=== PATIENT | male | born 1980 | race African-American/Black ===

== ENCOUNTER 2021-01-16 07:24 | Observation (INO) | payer SELFPAY ==
--- OUTSIDE RECORDS SUMMARY | 2021-01-16 07:26 | XMS REPORT | Continuity of Care Document ---
:1980 Author Organization [facility] t Address [address] [place] [address] Care Team Providers Name Role Phone Adrian SANCHEZ Attending Clinician Adonis SANCHEZ Attending Clinician Adonis SANCHEZ Admitting Clinician Problems This patient has no known problems. Allergies, Adverse Reactions, Alerts This patient has no known allergies or adverse reactions. Medications This patient has no known medications. Procedures This patient has no known procedures. Encounters Start End Encounter Admission Attending Care Care Encounter Source Date/Time Date/Time Type Type Clinicians Facility Department ID 2020-12-20 2020-12-21 [facility] [address] [facility] [id number] 16:45:00 12:39:00 Encounter Geovani Lamb [id number] [place] [id number] [place] [id number] Results This patient has no known results.
[2021-01-16] MEDS ORDERED: IPRATROPIUM BROM 0.5MG/2.5ML ONE (08:34)
[2021-01-16] MEDS ORDERED: LEVALBUTEROL 1.25 MG/3 ML NEB ONE (08:34)
[2021-01-16] MEDS ORDERED: NA CHLORIDE 0.9% 1,000 ML ONE (08:34)
[2021-01-16] MEDS ORDERED: METHYLPREDNISOLONE 125 MG INJ ONE (08:34)
[2021-01-16] MEDS ORDERED: FAMOTIDINE 20 MG/2 ML VIAL IV ONE (08:34)
[2021-01-16] MEDS ORDERED: CEFTRIAXONE/SWI 1gm 1 GM/10 ML SYR ONE (08:35)
[2021-01-16] MEDS ORDERED: Magnesium Sulfate 2gm IVPB 2 G/50 ML BAG IV ONE (08:35)
--- NOTE | 2021-01-16 08:51 | ER ---
Nurse's Notes [facility] Name: Que Walker Age: 40 yrs Sex: Male : 1980 Arrival Date: 01/16/2021 Time: 07:26 Bed 20 Private MD: Diagnosis: Asthma;Dyspnea;Essential (primary) hypertension;Obesity, unspecified Presentation: 01/16 07:35 Chief complaint: Patient states: SOB and cough that began last night. Pt reports hx of aa5 asthma. 07:35 Coronavirus screen: cough unrelated to allergies, shortness of breath. Ebola Screen: aa5 Patient negative for fever greater than or equal to 101.5 degrees Fahrenheit, and additional compatible Ebola Virus Disease symptoms. Initial Sepsis Screen: Does the patient meet any 2 criteria? RR > 20 per min. Does the patient have a suspected source of infection? No. Patient's initial sepsis screen is negative. Risk Assessment: Do you want to hurt yourself or someone else? Patient reports no desire to harm self or others. Onset of symptoms was January 16, 2021. 07:35 Acuity: DU 3 aa5 07:35 Method Of Arrival: Wheelchair aa5 Historical: - Allergies: 09:30 Iodine; rb3 - PMHx: 07:46 Hypertension; Asthma; aa5 - PSHx: 07:46 left hand surg; left foot surg; aa5 - Immunization history:: Adult Immunizations unknown. - Social history:: Smoking status: Patient reports the use of cigarette tobacco products, denies chronic smoking, but will smoke occasionally. - Family history:: not pertinent. Screenin:44 Abuse screen: Denies threats or abuse. Nutritional screening: decreased appetite for a rb3 couple days. Tuberculosis screening: No symptoms or risk factors identified. Fall Risk None identified. Assessment: 07:44 General: Appears in no apparent distress. Behavior is calm, cooperative, Denies fever. rb3 Neuro: Level of Consciousness is awake, alert, obeys commands, Oriented to person, place, time, situation. Cardiovascular: Capillary refill. Respiratory: Reports shortness of breath cough that is Airway is patent Respiratory effort is even, unlabored, Respiratory pattern is regular, symmetrical. GI: No signs and/or symptoms were reported involving the gastrointestinal system. : No signs and/or symptoms were reported regarding the genitourinary system. EENT: Right side of neck is swollen. Dr. Ferreira notified.. Musculoskeletal: Range of motion: intact in all extremities. 08:30 Reassessment: Patient appears in no apparent distress at this time. No changes from rb3 previously documented assessment. 09:30 Reassessment: Patient appears in no apparent distress at this time. Patient and/or rb3 family updated on plan of care and expected duration. Pain level reassessed. Patient is alert, oriented x 3, equal unlabored respirations, skin warm/dry/pink. 09:35 Reassessment: Pt. went to CT. rb3 10:00 Reassessment: Patient appears in no apparent distress at this time. No changes from rb3 previously documented assessment. 10:49 Reassessment: Dr. Doll at the pt. bedside. rb3 11:00 Reassessment: Patient appears in no apparent distress at this time. Patient and/or rb3 family updated on plan of care and expected duration. Pain level reassessed. Patient is alert, oriented x 3, equal unlabored respirations, skin warm/dry/pink. 11:56 Reassessment: Patient appears in no apparent distress at this time. No changes from rb3 previously documented assessment. Vital Signs: 07:35 BP 154 / 120; Pulse 90; Resp 28 S; Temp 98.3(O); Pulse Ox 99% on R/A; Weight 102.51 kg aa5 (R); Height 5 ft. 10 in. (177.80 cm) (R); 08:30 BP 161 / 122; Pulse 90; Resp 21; Pulse Ox 100% ; rb3 09:30 BP 165 / 113; Pulse 94; Resp 22; Pulse Ox 97% ; rb3 10:00 BP 142 / 114; Pulse 91; Resp 21; Pulse Ox 97% on R/A; rb3 11:00 BP 142 / 100; Pulse 90; Resp 22; Pulse Ox 97% ; rb3 11:56 BP 130 / 101; Pulse 92; Resp 21; Pulse Ox 97% ; rb3 07:35 Body Mass Index 32.43 (102.51 kg, 177.80 cm) aa5 ED Course: 07:26 Patient arrived in ED. as 07:35 Arm band placed on. aa5 07:37 Marko Ferreira MD is Attending Physician. sammi 07:44 Patient has correct armband on for positive identification. Bed in low position. Call rb3 light in reach. Side rails up X 1. graphic design intern on. Pulse ox on. NIBP on. Warm blanket given. 07:46 Triage completed. aa5 07:52 Daniela Reddy, RN is Primary Nurse. rb3 08:28 XRAY Chest (1 view) In Process Unspecified. EDMS 08:43 Inserted saline lock: in right antecubital area, using aseptic technique. Blood rb3 collected. 08:50 Evert Doll MD is Hospitalizing Provider. sammi 09:45 Soft Tissue Neck Wo Contr In Process Unspecified. EDMS 09:46 Thorax Wo Con In Process Unspecified. EDMS 12:25 No provider procedures requiring assistance completed. IV discontinued, intact, rb3 bleeding controlled, No redness/swelling at site. Pressure dressing applied. Administered Medications: 08:25 Drug: Xopenex (levalbuterol) 3.75 mg Route: Inhalation; rb3 08:25 Drug: AtroVENT (ipratropium) Aerosol 0.5 mg Route: Inhalation; rb3 08:45 Drug: SOLU-Medrol (methylPrednisoLONE) 125 mg Route: IVP; Site: right antecubital; rb3 09:00 Follow up: Response: No adverse reaction rb3 08:45 Drug: Magnesium Sulfate 2 grams Route: IVPB; Infused Over: 2 hrs; Site: right rb3 antecubital; 10:47 Follow up: Response: No adverse reaction; IV Status: Completed infusion rb3 08:45 Drug: Rocephin - (cefTRIAXone) 1 grams Route: IVPB; Infused Over: 30 mins; Site: right rb3 antecubital; 09:00 Follow up: Response: No adverse reaction; IV Status: Completed infusion rb3 08:45 Drug: NS 0.9% 1000 ml Route: IV; Rate: 125 ml/hr; Site: right antecubital; rb3 12:12 Follow up: IV Status: Completed infusion rb3 08:45 Drug: Pepcid (famotidine) 20 mg Route: IVP; Site: right antecubital; rb3 09:00 Follow up: Response: No adverse reaction rb3 09:30 Drug: cloNIDine 0.2 mg Route: PO; rb3 10:00 Follow up: Response: No adverse reaction rb3 09:30 Drug: Norvasc (amlodipine) 10 mg Route: PO; rb3 10:00 Follow up: Response: No adverse reaction rb3 10:49 Drug: Zithromax (azithromycin) 500 mg Route: IVPB; Infused Over: 1 hrs; Site: right rb3 antecubital; 11:55 Follow up: Response: No adverse reaction; IV Status: Completed infusion rb3 Outcome: 08:51 Decision to Hospitalize by Provider. sammi 12:25 Discharged to home ambulatory, with family. rb3 12:25 Condition: stable 12:25 Discharge instructions given to patient, Instructed on discharge instructions, follow up and referral plans. medication usage, Demonstrated understanding of instructions, follow-up care, medications, Prescriptions given X 3. 12:26 Patient left the ED. rb3 Signatures: Dispatcher [employer] EDMS Marko Ferreira MD MD cha Martinez, Amelia as Calderon, Audri, RN RN aa5 Daniela Reddy RN RN rb3 Corrections: (The following items were deleted from the chart) 09:33 07:30 BP 161 / 122; Pulse 90bpm; Resp 21bpm; Pulse Ox 100%; rb3 rb3 09:34 07:46 Allergies: No Known Allergies; aa5 rb3 10:15 08:58 CORONAVIRUS+MR.LAB.MAY drawn and sent. rb3 EDMS
--- NOTE | 2021-01-16 08:52 | EDPHYS ---
Physician Documentation [facility] Name: Que Walker Age: 40 yrs Sex: Male : 1980 Arrival Date: 01/16/2021 Time: 07:26 Bed 20 Private MD: GONZALO Physician Marko Ferreira HPI: 01/16 08:44 This 40 yrs old Black Male presents to ER via Wheelchair with complaints of Asthma sammi Exacerbation. 08:44 The patient presents to the emergency department with wheezing, Current therapy: None. sammi Onset: The symptoms/episode began/occurred 2 day(s) ago. Modifying factors: The symptoms are alleviated by nothing, the symptoms are aggravated by damp environment, exertion. Associated signs and symptoms: Pertinent positives: nausea. Severity of symptoms: At their worst the symptoms were moderate in the emergency department the symptoms are unchanged. The patient has not experienced similar symptoms in the past. Historical: - Allergies: 09:30 Iodine; rb3 - PMHx: 07:46 Hypertension; Asthma; aa5 - PSHx: 07:46 left hand surg; left foot surg; aa5 - Immunization history:: Adult Immunizations unknown. - Social history:: Smoking status: Patient reports the use of cigarette tobacco products, denies chronic smoking, but will smoke occasionally. - Family history:: not pertinent. ROS: 08:44 Constitutional: Negative for fever, chills, and weight loss, Eyes: Negative for injury, sammi pain, redness, and discharge, ENT: Negative for injury, pain, and discharge, Neck: Negative for injury, pain, and swelling, Cardiovascular: Negative for chest pain, palpitations, and edema, Abdomen/GI: Negative for abdominal pain, nausea, vomiting, diarrhea, and constipation, Back: Negative for injury and pain, : Negative for injury, bleeding, discharge, and swelling, MS/Extremity: Negative for injury and deformity, Skin: Negative for injury, rash, and discoloration, Neuro: Negative for headache, weakness, numbness, tingling, and seizure, Psych: Negative for depression, anxiety, suicide ideation, homicidal ideation, and hallucinations, Allergy/Immunology: Negative for hives, rash, and allergies, Endocrine: Negative for neck swelling, polydipsia, polyuria, polyphagia, and marked weight changes, Hematologic/Lymphatic: Negative for swollen nodes, abnormal bleeding, and unusual bruising. 08:44 Respiratory: Positive for cough, shortness of breath, wheezing, inspiratory, expiratory. Exam: 08:44 Constitutional: This is a well developed, well nourished patient who is awake, alert, sammi and in no acute distress. Head/Face: Normocephalic, atraumatic. Eyes: Pupils equal round and reactive to light, extra-ocular motions intact. Lids and lashes normal. Conjunctiva and sclera are non-icteric and not injected. Cornea within normal limits. Periorbital areas with no swelling, redness, or edema. ENT: Nares patent. No nasal discharge, no septal abnormalities noted. Tympanic membranes are normal and external auditory canals are clear. Oropharynx with no redness, swelling, or masses, exudates, or evidence of obstruction, uvula midline. Mucous membranes moist. Neck: Trachea midline, no thyromegaly or masses palpated, and no cervical lymphadenopathy. Supple, full range of motion without nuchal rigidity, or vertebral point tenderness. No Meningismus. Chest/axilla: Normal chest wall appearance and motion. Nontender with no deformity. No lesions are appreciated. Cardiovascular: Regular rate and rhythm with a normal S1 and S2. No gallops, murmurs, or rubs. Normal PMI, no JVD. No pulse deficits. Abdomen/GI: Soft, non-tender, with normal bowel sounds. No distension or tympany. No guarding or rebound. No evidence of tenderness throughout. Back: No spinal tenderness. No costovertebral tenderness. Full range of motion. Male : Normal genitalia with no discharge or lesions. Skin: Warm, dry with normal turgor. Normal color with no rashes, no lesions, and no evidence of cellulitis. MS/ Extremity: Pulses equal, no cyanosis. Neurovascular intact. Full, normal range of motion. Neuro: Awake and alert, GCS 15, oriented to person, place, time, and situation. Cranial nerves II-XII grossly intact. Motor strength 5/5 in all extremities. Sensory grossly intact. Cerebellar exam normal. Normal gait. Psych: Awake, alert, with orientation to person, place and time. Behavior, mood, and affect are within normal limits. 08:44 Respiratory: the patient does not display signs of respiratory distress, Respirations: labored breathing, that is mild, that is moderate, Breath sounds: decreased breath sounds, rhonchi, + upper airway congestion. wheezing: expiratory Respiratory rate: 28 08:49 Respiratory: Breath sounds: [facility] 09:12 ECG was reviewed by the Attending Physician. [facility] 09:12 Musculoskeletal/extremity: DVT Exam: No signs of deep vein thrombosis. no pain, no swelling, no tenderness, negative Homans' sign noted on exam, no appreciated bluish discoloration, no erythema, no increased warmth. 09:13 Neck: External neck: swelling, tenderness, that is moderate, of the right sammi submandibular area, right sternocleidomastoid, right posterior aspect of neck and right lateral aspect of neck. Vital Signs: 07:35 BP 154 / 120; Pulse 90; Resp 28 S; Temp 98.3(O); Pulse Ox 99% on R/A; Weight 102.51 kg aa5 (R); Height 5 ft. 10 in. (177.80 cm) (R); 08:30 BP 161 / 122; Pulse 90; Resp 21; Pulse Ox 100% ; rb3 09:30 BP 165 / 113; Pulse 94; Resp 22; Pulse Ox 97% ; rb3 10:00 BP 142 / 114; Pulse 91; Resp 21; Pulse Ox 97% on R/A; rb3 11:00 BP 142 / 100; Pulse 90; Resp 22; Pulse Ox 97% ; rb3 11:56 BP 130 / 101; Pulse 92; Resp 21; Pulse Ox 97% ; rb3 07:35 Body Mass Index 32.43 (102.51 kg, 177.80 cm) aa5 MDM: 07:37 Patient medically screened. [facility] 08:48 Differential diagnosis: acute asthma, reactive airway. Antibiotic administration: [facility] Rocephin and Zithromax given. Data reviewed: vital signs, nurses notes, lab test result(s), EKG, radiologic studies, CT scan, plain films. Data interpreted: nurse monitoring: Pulse oximetry: on room air is 99 %. Test interpretation: by ED physician or midlevel provider: ECG, plain radiologic studies. Counseling: I had a detailed discussion with the patient and/or guardian regarding: the historical points, exam findings, and any diagnostic results supporting the discharge/admit diagnosis, lab results, radiology results, the need for further work-up and treatment in the hospital. 01/16 07:55 Order name: Basic Metabolic Panel [facility] 01/16 07:55 Order name: CBC with Diff; Complete Time: 09:[address] [facility] 01/16 07:55 Order name: LFT's; Complete Time: 09:[address] [facility] 01/16 07:55 Order name: Magnesium; Complete Time: 09:[address] [facility] 01/16 07:55 Order name: NT PRO-BNP; Complete Time: 09:[address] [facility] 01/16 07:55 Order name: PT-INR [facility] 01/16 07:55 Order name: Troponin (emerg Dept Use Only); Complete Time: 09:[address] [facility] 01/16 07:55 Order name: XRAY Chest (1 view); Complete Time: 10:[address] [facility] 01/16 07:55 Order name: Blood Culture Adult (2) [facility] 01/16 07:56 Order name: Basic Metabolic Panel; Complete Time: 09:33 [facility] 01/16 11:28 Order name: SARS-COV-2 RT PCR [facility] 01/16 07:55 Order name: EKG; Complete Time: 07:[address] [facility] 01/16 07:55 Order name: Cardiac monitoring; Complete Time: 09:[address] [facility] 01/16 09:37 Order name: Thorax Wo Con [facility] 01/16 09:38 Order name: Soft Tissue Neck Wo Contr; Complete Time: 10:14 [facility] 01/16 07:55 Order name: EKG - Nurse/Tech; Complete Time: 09:[address] [facility] 01/16 07:55 Order name: IV Saline Lock; Complete Time: 09:[address] [facility] 01/16 07:55 Order name: Labs collected and sent; Complete Time: 08:[address] [facility] 01/16 07:55 Order name: O2 Per Protocol; Complete Time: 08:[address] [facility] 01/16 07:55 Order name: O2 Sat Monitoring; Complete Time: 08:[address] [facility] EC:12 Rate is 94 beats/min. Rhythm is regular. QRS [place] is Normal. DC interval is normal. QRS sammi interval is normal. QT interval is normal. No Q waves. T waves are Normal. No ST changes noted. Clinical impression: NSR w/ Non-specific ST/T Changes and No evidence of ischemia. Interpreted by me. Reviewed by me. Administered Medications: 08:25 Drug: Xopenex (levalbuterol) 3.75 mg Route: Inhalation; rb3 08:25 Drug: AtroVENT (ipratropium) Aerosol 0.5 mg Route: Inhalation; rb3 08:45 Drug: SOLU-Medrol (methylPrednisoLONE) 125 mg Route: IVP; Site: right antecubital; rb3 09:00 Follow up: Response: No adverse reaction rb3 08:45 Drug: Magnesium Sulfate 2 grams Route: IVPB; Infused Over: 2 hrs; Site: right rb3 antecubital; 10:47 Follow up: Response: No adverse reaction; IV Status: Completed infusion rb3 08:45 Drug: Rocephin - (cefTRIAXone) 1 grams Route: IVPB; Infused Over: 30 mins; Site: right rb3 antecubital; 09:00 Follow up: Response: No adverse reaction; IV Status: Completed infusion rb3 08:45 Drug: NS 0.9% 1000 ml Route: IV; Rate: 125 ml/hr; Site: right antecubital; rb3 12:12 Follow up: IV Status: Completed infusion rb3 08:45 Drug: Pepcid (famotidine) 20 mg Route: IVP; Site: right antecubital; rb3 09:00 Follow up: Response: No adverse reaction rb3 09:30 Drug: cloNIDine 0.2 mg Route: PO; rb3 10:00 Follow up: Response: No adverse reaction rb3 09:30 Drug: Norvasc (amlodipine) 10 mg Route: PO; rb3 10:00 Follow up: Response: No adverse reaction rb3 10:49 Drug: Zithromax (azithromycin) 500 mg Route: IVPB; Infused Over: 1 hrs; Site: right rb3 antecubital; 11:55 Follow up: Response: No adverse reaction; IV Status: Completed infusion rb3 Disposition: 01/16/21 08:51 Hospitalization ordered by Evert Doll for Inpatient Admission. Preliminary diagnosis are Asthma, Dyspnea, Essential (primary) hypertension, Obesity, unspecified. - Bed requested for Telemetry/MedSurg (Inpatient). - Status is Inpatient Admission. rb3 - Condition is Fair. - Problem is new. - Symptoms have improved. Signatures: Dispatcher [employer] EDMarko Diaz MD MD cha Calderon, Audri, RN RN aa5 Daniela Reddy, RN RN rb3 Corrections: (The following items were deleted from the chart) 09:20 08:50 Chest For PE Angio+CT.RAD.BRZ ordered. EDMS EDMS 09:34 07:46 Allergies: No Known Allergies; aa5 rb3 09:36 09:13 Thorax W/ Con+CT.RAD.BRZ ordered. EDMS EDMS 09:37 09:36 CT-CHEST WITHOUT CONTRAST ordered. EDMS EDMS 09:38 09:13 Soft Tissue Neck W/Contr+CT.RAD.BRZ ordered. EDMS EDMS 10:15 07:56 CORONAVIRUS+MR.LAB.BRZ ordered. EDMS EDMS 12:26 08:51 Hospitalization Ordered by Evert Doll MD for Inpatient Admission. Preliminary rb3 diagnosis is Asthma; Dyspnea; Essential (primary) hypertension; Obesity, unspecified. Bed requested for Telemetry/MedSurg (Inpatient). Status is Inpatient Admission. Condition is Fair. Problem is new. Symptoms have improved. sammi
[2021-01-16 09:01] LABS: Absolute Lymphocytes (CBC) 1.5 K/uL (0.7-4.9); Basophils % 1.1 % (0-1.3); Hematocrit 42.9 % (39.6-49.0); Lymphocytes % 19.4 % (15.3-44.8); MPV 8.7 fL (7.6-11.3); RBC Red Blood Cell Count 5.06 M/uL (4.33-5.43)
[2021-01-16 09:10] LABS: Protime INR 1.14
[2021-01-16 09:31] LABS: ALT/SGPT 29 U/L (12-78); AST/SGOT 8 U/L (15-37); Albumin 3.5 g/dL (3.4-5.0); Alkaline Phosphatase 128 U/L (45-117); BUN Blood Urea Nitrogen 8 mg/dL (7-18); Bicarbonate 27 mmol/L (21-32); Bilirubin Direct 0.1 mg/dL (0-0.2); Bilirubin Total 0.7 mg/dL (0.2-1.0); Glucose Level 129 mg/dL (74-106); NT PRO-BNP 28 pg/mL (<125); Potassium 3.8 mmol/L (3.5-5.1); Protein, Total 8.7 g/dL (6.4-8.2); Sodium Level 136 mmol/L (136-145); Troponin (Emerg Dept Use Only) < 0.02 ng/mL (0.0-0.045)
[2021-01-16] MEDS ORDERED: cloNIDine HCL 0.1 MG TAB ONE (09:46)
[2021-01-16] MEDS ORDERED: AMLODIPINE 10 MG TAB ONE (09:47)
--- NOTE | 2021-01-16 09:52 | RAD REPORT ---
EXAM DESCRIPTION: RAD - Chest Single View - 01/16/2021 8:30 am CLINICAL HISTORY: Cough;Dyspnea COMPARISON: None TECHNIQUE: AP portable chest image was obtained 01/16/2021 8:30 am . FINDINGS: Lungs are clear. Heart and vasculature are normal. No measurable pleural effusion and no p neumothorax. No acute bony abnormality seen. No acute aortic findings suspected. IMPRESSION: No acute cardiopulmonary process.
--- NOTE | 2021-01-16 10:00 | RAD REPORT ---
EXAM DESCRIPTION: CT - Soft Tissue Neck Wo Contr - 01/16/2021 9:45 am CLINICAL HISTORY: Deformity;Fever;Congestion, history of neck swelling and tenderness right submandi bular region and posterior neck COMPARISON: Thorax Wo Con dated 01/16/2021 TECHNIQUE: Axial 3 millimeter thick images were obtained of the neck and included the head from skul lbase to third ventricle level. Sagittal and coronal reformatted images were generated. No contrast w as administered. All CT scans are performed using dose optimization technique as appropriate and may include automated exposure control or mA/KV adjustment according to patient size. FINDINGS: Intracranial contents are grossly normal on limited assessment. No globe or orbital conten t abnormality. Mastoid air cells are clear. There is complete opacification of the frontal, ethmoid a nd sphenoid sinuses with mucosal thickening partially filling each maxillary sinus. No air-fluid leve l. No sclerotic or expansile bony change. No acute or destructive bone process identified. No globe o r orbital content abnormality seen. Adenoid tissue is mildly prominent accentuated by oblique angulation to these tissues. No abnormal to nsillar thickening or hypertrophy evident. Soft palate, epiglottis and laryngeal structures within no rmal limits. No pharyngeal mucosal mass. The parotid, submandibular and partially imaged thyroid gland tissue show no suspicious findings. Patient has numerous bilateral enlarged lymph nodes posterior to each angle of the mandible and deep to each sternocleidomastoid muscle. Lymph nodes range from a few mm up to 3.5 cm in size. Lymph nodes are worse on the right. Supraclavicular region is not imaged to allow assessment of lymphadenopathy. No necrotic lymph nodes seen. No abnormalities posterior to the cervical spine. Skeletal musculature shows no suspicious finding. IMPRESSION: Extensive abnormal bilateral cervical lymphadenopathy with lymph nodes ranging from a fe w mm up to 3.5 cm in size. Largest lymph node is posterior to the right angle of the mandible. Complete opacification of the ethmoid, frontal and sphenoid sinuses with partial opacification of the maxillary sinuses. Lymph node pattern is nonspecific. Reactive lymph nodes are possible given the evidence of sinus infe ction. Lymphoma or other malignancy is possible as well.
--- NOTE | 2021-01-16 10:18 | RAD REPORT ---
EXAM DESCRIPTION: CT - Thorax Wo Con - 01/16/2021 9:46 am CLINICAL HISTORY: PAIN, shortness of breath, cough, hypertension COMPARISON: Chest Single View dated 01/16/2021 TECHNIQUE: Axial 5 mm thick images of the chest were obtained without IV contrast. All CT scans are performed using dose optimization technique as appropriate and may include automated exposure control or mA/KV adjustment according to patient size. FINDINGS: Bilateral cervical lymphadenopathy is detailed in the separate CT soft tissue neck examina tion. A 4 millimeter noncalcified pulmonary nodule is present in the right upper lobe abutting the minor fi ssure (image 41/75). A small focus of ill-defined ground-glass opacity present abutting the diaphragm atic pleura on the right. A 6 millimeter ill-defined nodular density is present in the posterolateral left upper lobe abutting the fissure (image 38/75). Several additional small 3 mm or less nodules ar e seen in the lateral left lower lobe. No consolidated infiltrate or acute infectious process of the lung parenchyma. No pulmonary edema. There is minimal scarring in the anterior base of the lingula. No pleural thickening or pleural effusion. No pneumothorax. Several small nonspecific hilar lymph nodes are present. Multiple small 6-11 mm lymph nodes are seen near the great vessel origins. A 14 millimeter lymph node is present in the superior aspect of the re trocaval-pretracheal space. A 25 millimeter lymph node is present in the inferior aspect of the retro caval-pretracheal space. Small subcarinal lymph nodes are present. No gross aortic or pulmonary artery finding suspected. No cardiomegaly or pericardial effusion. No chest wall mass. Patient has a few nonspecific bilateral axillary lymph nodes. Largest is 13 mm on the left side. IMPRESSION: Multiple noncalcified mediastinal lymph nodes are present with small hilar lymph nodes. Lymph node pattern is greater than typically seen. Patient has a few small nonspecific pulmonary nodules up to 6 mm in size. These are few in number. Lymph node pattern is nonspecific. Given the cervical lymph node pattern, lymphoma would be a conside ration. There is no significant lung parenchymal process that would suspect the mediastinal lymph nod es to be reactive. Sarcoidosis or other non malignant etiologies are possible.
[2021-01-16] MEDS ORDERED: AZITHROMYCIN IV 500 MG in NA CHLORIDE 0.9% 250 ML IVPB ONE (11:00)
--- NOTE | 2021-01-16 11:41 | P.SSS ---
Patient History Date of Service: 01/16/21 Reason for admission: Asthma Exacerbation History of Present Illness: 40yo M PMH: HTN and asthma, presents to ED due to shortness of breath and wheezing. Has been having progressive worsening SOB over the past 2 days. Albuterol inhaler at home didn't help enough. Reports ~1 week of sinus pressure / "sinus infection", and was hospitalized for 2 days ~2 weeks ago for "bronchitis" in [place]. States he had similar presentation but worse and with high fever. Also endorses ~2 weeks of "swollen glands" on R neck. States brother recently from "throat cancer" 2 weeks ago as well. Patient was given treatment for asthma exacerbation and shortly after, ED provider requested patient admission. ED provider then ordered CT chest and neck. Labwork was rather unremarkable. Home Medications: Amox/Clavulanate [Augmentin 875-125 Tab] 875 mg PO BID 10 Days #20 tab 01/16/21 RX: Albuterol Inhaler [Ventolin Inhaler*] 2 puff IH Q6H PRN 30 Days #1 hfa.aer.[email or web address] 01/16/21 predniSONE [Prednisone] 20 mg PO SEECOM 10 Days #15 tablet 01/16/21 - Past Medical/Surgical History -: HTN -: Asthma Past Surgical History: Patient denies surgical history - Family History Brother -: Cancer ("throat") - Social History Smoking Status: Current every day smoker (1/2ppd - for ~20yrs) Place of Residence: Home Review of Systems 10-point ROS is otherwise unremarkable Physical Examination - Physical Exam General: Alert, In no apparent distress, Oriented x3 HEENT: Mucous membr. moist/pink, Sclerae nonicteric Neck: Supple Respiratory: Clear to auscultation bilaterally Cardiovascular: No edema, Regular rate/rhythm, Normal S1 S2 Gastrointestinal: Soft and benign, Non-distended, No tenderness Musculoskeletal: No erythema, No tenderness Integumentary: No rashes Neurological: Normal speech, Normal strength at 5/5 x4 extr Lymphatics: Other (b/l cervical lymphadenopathy, R>L) - Studies Laboratory Data (last 24 hrs) 01/16/21 08:43: PT 13.1 H, INR 1.14 01/16/21 08:43: WBC 7.80, Hgb 14.1, Hct 42.9, Plt Count 273 04/17/21 08:43: Sodium 136, Potassium 3.8, BUN 8, Creatinine 1.10, Glucose 129 H, Magnesium 2.0, Total Bilirubin 0.7, AST 8 L, ALT 29, Alkaline Phosphatase 128 H Treatment Summary: Problem List acute asthma exacerbation Cervical and mediastinal lymphadenopathy HTN Patient was evaluated after CT was obtained and ~2-3 hours after initial t reatment. Patient reported feeling much better and asking to be discharged home. He was breathing comfortably at ~20-22 breaths per minute with SpO2: 99% on room air. Imaging results were not reviewed with patient yet. They were notable for lymphadenopathy at: bilateral cervical lymph nodes (R>L) with largest measure 3.5cm, mediastinal lymph nodes, and axillary lymph nodes. He reported no recent sick contacts or anyone with similar symptoms. Discussed the possibility that these may be reactive if he had bronchitis and currently dealing with acute sinusitis as seen on CT as well, however, there is also concern for cancer/lymphoma. He was advised to follow up with Dr. Ruby for a tissue biopsy - instructed to call the office on Monday. Dr. Ruby was contacted so that his office staff would be aware. Patient's breathing issues had resolved and he was discharged with a refill for albuterol inhaler, prednisone, and augmentin for his acute sinusitis. He was given return instructions if symptoms worsened. - Disposition Discharge Date: 01/17/20 Disposition: ROUTINE DISCHARGE Condition: GOOD Diet: Regular Activity: Ad josey Time Spent Managing Pts Care (In Minutes): 75
[2021-01-16 12:36] VITALS: TEMP 98.3
[2021-01-16 12:39] VITALS: O2SAT 97
[2021-01-16 12:44] VITALS: BP 130/101
== END 2021-01-16 12:32 | disposition home health service (06) ==
LOC: ER 07:24 → ERHOLD 11:37
PROVIDERS: ADMIT Hospitalist; ATTEND Hospitalist
DX: J45.901 Unspecified asthma with (acute) exacerbation (principal); R59.0 Localized enlarged lymph nodes; I10 Essential (primary) hypertension; E66.9 Obesity, unspecified; Z68.32 Body mass index [BMI] 32.0-32.9, adult; F17.210 Nicotine dependence, cigarettes, uncomplicated; Z88.8 Allergy status to other drugs, medicaments and biological substances; Z80.0 Family history of malignant neoplasm of digestive organs
CPT/HCPCS: 36415; 70490; 71045; 71250; 80048; 80076; 83735; 83880; 84484; 85025; 85610; 87040; 93005; 96365; 96366; 96367; 96375; 99285; G0378; J0456; J0696; J2930; J3475; J7030; J7050; U0003